=== PATIENT | female | born 1965 | race Caucasian/White ===

== ENCOUNTER 2018-10-02 11:41 | Inpatient (IN) | payer MEDICARE ==
[~2018-10-02] VITALS: Ht 157.5 cm; Wt 98.5 kg
[2018-10-02] MEDS ORDERED: ACETAMINOPHEN 325 MG TAB PO PRN (13:00)
[2018-10-02] MEDS ORDERED: ONDANSETRON HCL 4 MG/2 ML VIAL IV PRN (13:00)
[2018-10-02] MEDS: SODIUM CHLORIDE 0.9% 1,000 ML IV SCH (13:00)
[2018-10-02 13:55] LABS: Basophils # (auto) 0 uL; Basophils % (auto) 0.4 % (0.0-2.0); Eosinophils # (auto) 0.1 uL; Eosinophils % (auto) 2.1 % (0.0-7.0); Hematocrit 28.5 % (36.0-46.0); Hemoglobin 9.6 g/dL (12.2-16.2); Mean Corpuscular Hemoglobin 33.1 pg (28.0-32.0); Mean Corpuscular Hgb Conc. 33.6 g/dL (32.0-36.0); Mean Corpuscular Volume 98.5 fL (80.0-100.0); Monocytes # (auto) 0.4 uL; Neutrophils # (auto) 1.5 uL; Neutrophils % (auto) 51.5 % (37.0-80.0); Nucleated Red Blood Cells % 0.2 %; Platelet Count (auto) 300 10^3/uL (140-450)
--- NOTE | 2018-10-02 14:00 | NUR ---
Dr. Jovan MD, at bedside.
[2018-10-02 14:04] LABS: Albumin 3.4 g/dL (3.4-5.0); Calcium 8.6 mg/dL (8.5-10.1); Potassium 3.7 mmol/L (3.5-5.1)
[2018-10-02 14:19] LABS: BUN/Creatinine Ratio 11.8; Bilirubin, Total 0.3 mg/dL (0.2-1.0); Total Protein 7.5 g/dL (6.4-8.2)
[2018-10-02 14:44] LABS: INR 1.06 (0.9-1.15); Partial Thromboplastin Time 30.2 sec (23.64-32.05)
[2018-10-02 15:08] VITALS: BP 119/76
--- NOTE | 2018-10-02 15:30 | NUR ---
Paged PICC line RN, Luna.
--- NOTE | 2018-10-02 15:47 | NUR ---
Direct Admit Note YASMEENMORENO admitted to Med/Surge unit as a direct admit per MD order. Patient oriented to JONAH SEAY, RN primary RN, unit, room, bed, and unit policies regarding patient care and visiting hours. Patient placed on bedside oxygen, weighed by bed scale and encouraged to call if they need something. All questions and concerns addressed, patient verbalized understanding. MD notified of patients arrival and admit orders received.
[2018-10-02] MEDS: CEFTRIAXONE SODIUM 2 GM in D5W 5% 50 ML IV SCH (16:00)
--- NOTE | 2018-10-02 16:03 | NUR ---
Patient refused Rocephin due at 1600; patient states she already received her daily dose of Rocephin at home prior to direct admission this afternoon. No distress noted at this time. Will continue to monitor patient Q1.
[2018-10-02] MEDS ORDERED: BUPR150T6 PO (16:20)
[2018-10-02] MEDS ORDERED: GABA300C10 PO (16:20)
[2018-10-02] MEDS ORDERED: OXY5T PO (16:20)
[2018-10-02] MEDS ORDERED: LEVO150T10 PO (16:20)
[2018-10-02] MEDS ORDERED: RIVA10TA PO (16:20)
--- NOTE | 2018-10-02 16:32 | NUR ---
PICC line nurse, Luna, at bedside.
[2018-10-02 17:10] VITALS: BP 121/67
--- NOTE | 2018-10-02 17:53 | NUR ---
PICC line placement Patient educated on need for PICC line placement. All risks and benefits explained and all questions and concerns addressed prior to procedure. Noted past medical history and allergies with no contraindications. INR and Plt counts within acceptable range. 5 fr PICC line inserted via left basilic vein using [employer] US and Tip Location System. Sterile technique with maximum barrier precautions utilized. Blood return obtained from each of the two lumens and each flushed easily with NS using proper technique. PICC secured with Stat-lock; biodisc and occlusive dressing applied. Stat portable chest x-ray obtained for PICC tip placement. *Baseline Arm Circumference 30 cm. *Internal Length 43 cm. *External Length 0 cm. *PICC lot #[id number]. Note: EBL 5mls. Pt experienced mild pain during procedure even after lidocaine injection. Pt and family questioned procedure at bedside and not at OR; they were explained PICC line protocols, standard of procedures and safety of procedure at bedside. Stated the PICC line placed to her right upper arm was in [facility] in an OR. Right upper arm PICC Line dc'd per Dr. Aldana's v.o. PICC sample placed in specimen container and handed over to primary RNLo. Pressure dressing applied to right upper arm.
[2018-10-02] MEDS ORDERED: LIDOCAINE 1% (LOCAL ANESTH.) PF 5ml SDV ID ONE (18:00)
--- NOTE | 2018-10-02 18:06 | NUR ---
OK to Use PICC Line X-ray completed. Primary RN notified.
[2018-10-02] MEDS: HYDROcodone-ACET 5/325MG TAB PO PRN (18:55)
--- NOTE | 2018-10-02 19:45 | NUR ---
Opening Shift Note Assumed care of patient, awake and alert, oriented x 4. On room air with even and unlabored respirations. Left upper ar m PICC intact and patent. Scar to right hip. No S/S of distress/SOB or pain. Bed low locked position with side rails up x 2 and call light within reach. Instructed on POC and to call for assist PRN, will continue to monitor for changes Q1hr and PRN.
[2018-10-02 21:00] VITALS: BP 117/54
[2018-10-02] MEDS: SODIUM CHLOR 0.9% PF (SALINE LOCK) 10ML VIAL/SYR IV SCH (21:04)
[2018-10-03] MEDS: HYDROcodone-ACET 5/325MG TAB PO PRN ×3 (00:25→12:09)
[2018-10-03 04:30] VITALS: BP 126/60
[2018-10-03] MEDS: SODIUM CHLORIDE 0.9% 1,000 ML IV SCH (06:23)
--- NOTE | 2018-10-03 06:57 | NUR ---
Closing Note patient resting in bed with even and unlabored respirations, no s/s of distress. Endorsed care to day shift RN.
--- NOTE | 2018-10-03 07:45 | NUR ---
RECEIVED REPORT AND ASSUME CARE OF PT. A/OX4. DENIED S/S ACUTE DISTRESS. UPDATE PT WITH POC. BED AT LOWEST POSITION. CALL LIGHT AND BELONGINGS WITHIN REACH. WILL CONT TO MONITOR.
[2018-10-03] MEDS: SODIUM CHLOR 0.9% PF (SALINE LOCK) 10ML VIAL/SYR IV SCH (08:44)
[2018-10-03] MEDS: CEFTRIAXONE SODIUM 2 GM in D5W 5% 50 ML IV SCH (08:44)
[2018-10-03 09:00] VITALS: BP 143/82
--- NOTE | 2018-10-03 10:38 | NUR ---
IV abx order faxed to [facility]. Contacted for what agency pt is with.
[2018-10-03 12:58] VITALS: BP 110/63
--- NOTE | 2018-10-03 14:40 | NUR ---
A/OX4. DENIED S/S ACUTE DISTRESS. DC INSTRUCTIONS GIVEN AND PT VERBALIZED UNDERSTANDING.PT LEFT UNIT ACCOMPANIED BY FAMILY IN STABLE CONDITION
--- NOTE | 2018-10-03 14:59 | NUR ---
SPOKE TO EVITA, PHARMACIST FOR [facility] [phone], AND HE STATED HE TALKED WITH PT AND KNOWS TO HAVE ABX DELIVERED TO [facility] WHERE PT IS STAYING AND ALSO STATED [facility] WILL BE AGENCY. ДМИТРИЙ PATTERSON INFORMED.
--- NOTE | 2018-10-03 16:49 | NUR ---
Per consult for home health antibiotics and picc line care. Information and choice letter was given to Pt. Pt requested [facility]. Pt verbalize and agrees d/c plan. Contacted [facility] and faxed medical records Ph: ( [phone]) Fax: ). Per Diane from [place] pt has been accepted and service to start within 48hrs upon d/c. Addendum: 10/03/18 at 1655 by ДМИТРИЙ AMADOR Amended: Links added.
== END 2018-10-03 14:30 | disposition home health service (06) | DRG 561 ==
LOC: WEST WING 12:18
PROVIDERS: ADMIT Internal Medicine; ATTEND Internal Medicine
DX: T84.51XA Infection and inflammatory reaction due to internal right hip prosthesis, initial encounter (principal); Z96.641 Presence of right artificial hip joint; D64.9 Anemia, unspecified; G62.9 Polyneuropathy, unspecified; M19.90 Unspecified osteoarthritis, unspecified site; D72.819 Decreased white blood cell count, unspecified; E66.3 Overweight; Y83.8 Other surgical procedures as the cause of abnormal reaction of the patient, or of later complication, without mention of misadventure at the time of the procedure; Y92.89 Other specified places as the place of occurrence of the external cause; Z87.891 Personal history of nicotine dependence; Z68.39 Body mass index [BMI] 39.0-39.9, adult
CPT/HCPCS: 36415; 36569; 71045; 80053; 85025; 85610; 85730; 87070; 87081; G0378; J0696; J7060

== ENCOUNTER 2022-10-06 19:18 | Emergency (ER) | payer MEDICARE, MEDICAID ==
[~2022-10-06] VITALS: Ht 154.9 cm; Wt 68.9 kg
[~2022-10-06 19:18] MED LIST: BUPR150T18 PO; GABA-1250 PO; LEVO150T10 PO; OXY5T PO; RIVA10TA PO
[2022-10-06] MEDS ORDERED: NAP500T PO (22:25)
[2022-10-06] MEDS ORDERED: HYDROcodone-ACET 5/325MG TAB PO ONE (22:30)
[2022-10-07 00:40] VITALS: BP 132/65; PULSE 69; RESP 16; TEMP 97.8
[2022-10-07 00:56] VITALS: O2SAT 97
== END 2022-10-07 01:01 | disposition home or self-care (01) ==
LOC: ER 19:18
DX: S62.001A Unspecified fracture of navicular [scaphoid] bone of right wrist, initial encounter for closed fracture (principal); S83.91XA Sprain of unspecified site of right knee, initial encounter; S76.011A Strain of muscle, fascia and tendon of right hip, initial encounter; S63.501A Unspecified sprain of right wrist, initial encounter; M16.11 Unilateral primary osteoarthritis, right hip; W18.09XA Striking against other object with subsequent fall, initial encounter; Y93.K1 Activity, walking an animal; Y92.098 Other place in other non-institutional residence as the place of occurrence of the external cause; Y99.8 Other external cause status
CPT/HCPCS: 29125; 73090; 73110; 73130

== ENCOUNTER → 2023-02-10 | Outpatient (CLI) | payer MEDICAID, MEDICARE, OTHER ==
[~2023-02-10] VITALS: Ht 154.9 cm; Wt 70.3 kg
[~2023-02-10] MED LIST changes: +ADENOSINE 59 MG in GIVE UN-DILUTED 0 ML IV ONE; +ADENOSINE 90 MG/30 ML INJ IV ONE; +NAP500T PO
== END | disposition home or self-care (01) ==
LOC: Rad HDHVI 09:32
PROVIDERS: ATTEND Internal Medicine Cardiovascular Disease
DX: I25.10 Atherosclerotic heart disease of native coronary artery without angina pectoris (principal); Z87.891 Personal history of nicotine dependence; Z82.49 Family history of ischemic heart disease and other diseases of the circulatory system
CPT/HCPCS: 78452; 93005; 96374; 96375; A9500; J0153

== ENCOUNTER → 2023-02-14 | Outpatient (CLI) | payer OTHER ==
[~2023-02-14] MED LIST changes: -ADENOSINE 59 MG in GIVE UN-DILUTED 0 ML IV ONE; -ADENOSINE 90 MG/30 ML INJ IV ONE
== END | disposition home or self-care (01) ==
LOC: Rad HDHVI 13:02
PROVIDERS: ATTEND Internal Medicine Cardiovascular Disease
DX: I08.3 Combined rheumatic disorders of mitral, aortic and tricuspid valves (principal); I25.10 Atherosclerotic heart disease of native coronary artery without angina pectoris
CPT/HCPCS: 93306

== ENCOUNTER 2023-05-02 14:04 | Emergency (ER) | payer OTHER, MEDICAID ==
[~2023-05-02] VITALS: Ht 154.9 cm; Wt 72.6 kg
[2023-05-02 14:59] LABS: Basophils # (auto) 0 10 ^3/uL (0-0.2); Basophils % (auto) 0.2 % (0.0-2.0); Eosinophils # (auto) 0 10 ^3/uL (0-0.8); Eosinophils % (auto) 0.8 % (0.0-7.0); Hematocrit 45.5 % (36.0-46.0); Hemoglobin 15.3 g/dL (12.2-16.2); Lymphocytes # (auto) 1.6 10 ^3/uL (0.4-5.4); Lymphocytes % (auto) 27.1 % (10.0-50.0); Mean Corpuscular Hemoglobin 32.8 pg (28.0-32.0); Mean Corpuscular Hgb Conc. 33.7 g/dL (32.0-36.0); Mean Corpuscular Volume 97.1 fL (80.0-100.0); Monocytes # (auto) 0.8 10 ^3/uL (0-1.3); Neutrophils # (auto) 3.4 10 ^3/uL (1.6-8.6); Neutrophils % (auto) 57.9 % (37.0-80.0); Nucleated Red Blood Cells % 0.1 %; Red Blood Cells 4.68 10^6/uL (4.0-5.20); Red Cell Distribution Width 13.5 % (11.8-14.3)
[2023-05-02 15:16] LABS: Alanine Aminotransferase 26 U/L (7-40); Alkaline Phosphatase 104 U/L (46-116); Anion Gap 8 (5-15); BUN/Creatinine Ratio 16.5 (10.0-20.0); Blood Urea Nitrogen 13 mg/dL (9-23); Calcium 9.8 mg/dL (8.5-10.1); Carbon Dioxide 25 mmol/L (20-30); Chloride 105 mmol/L (98-107); Glucose 101 mg/dL (74-106); Potassium 3.8 mmol/L (3.5-5.1); Sodium 138 mmol/L (136-145)
[2023-05-02 15:17] LABS: Albumin 4.6 g/dL (3.2-4.8); Aspartate Aminotransferase 23 U/L (13-40); Bilirubin, Total 0.7 mg/dL (0.2-1.0); Total Protein 6.7 g/dL (5.7-8.2)
[2023-05-02] MEDS: IOHEXOL 300 MG/ML 100ML BOTTLE IJ ONE (16:44)
[2023-05-02] MEDS: TETRACAINE HCL 0.5% OPTH(EYE) SOLN 4ML LEFTEYE ONE (17:00)
[2023-05-02] MEDS: FLUORESCEIN SOD OPTH TEST STRIP EACHEYE ONE (17:00)
[2023-05-02] MEDS ORDERED: NEOM0.1O7 OP (18:05)
[2023-05-02 18:26] VITALS: BP 142/74; PULSE 55; RESP 18; TEMP 98; O2SAT 99
== END 2023-05-02 18:27 | disposition home or self-care (01) ==
LOC: ER 14:04
DX: H10.32 Unspecified acute conjunctivitis, left eye (principal)
CPT/HCPCS: 36415; 70481; 80053; 83605; 85025; 87040; 99285; Q9967

== ENCOUNTER 2025-01-13 08:32 | Outpatient (CLI) | payer OTHER, MEDICAID ==
[~2025-01-13 08:32] MED LIST changes: +NEOM0.1O7 OP
[2025-01-13 09:44] LABS: Calcium 9.8 mg/dL (8.7-10.4); Chloride 105 mmol/L (98-107); Potassium 4.4 mmol/L (3.5-5.1); Sodium 141 mmol/L (136-145)
[2025-01-13 09:45] LABS: Anion Gap 9 (5-15); Carbon Dioxide 27 mmol/L (20-31)
[2025-01-13 09:50] LABS: BUN/Creatinine Ratio 15.1 (10.0-20.0); Blood Urea Nitrogen 13 mg/dL (9-23); Glucose 89 mg/dL (74-106)
[2025-01-13 10:17] LABS: Hematocrit 43.6 % (36.0-46.0); Hemoglobin 15.0 g/dL (12.2-16.2); Mean Corpuscular Hemoglobin 33.5 pg (28.0-32.0); Mean Corpuscular Volume 97.4 fL (80.0-100.0); Nucleated Red Blood Cells % 0.3 %
[2025-01-13 10:33] LABS: Urine Protein, UAD Negative (Negative)
== END 2025-01-13 17:00 | disposition home or self-care (01) ==
LOC: LAB 08:32
PROVIDERS: ATTEND Internal Medicine
DX: E03.9 Hypothyroidism, unspecified (principal); D72.819 Decreased white blood cell count, unspecified; R73.03 Prediabetes
CPT/HCPCS: 36415; 80048; 81001; 85025